=== PATIENT | male | born 1990 | race Caucasian/White ===

== ENCOUNTER 2016-11-15 14:04 | Emergency (ER) | payer OTHER ==
--- NOTE | 2016-11-15 15:11 | ED CLINICAL REPORT ---
Clinical Report - Physicians/Mid Levels [facility] [address] [address] 11/15/2016 14:06 Patient: MABLE BETHEA Time Seen: 14:59; initial patient contact, initial documentation, patient care assumed. Arrived- By private vehicle. Historian- patient. HISTORY OF PRESENT ILLNESS Chief Complaint: SKIN RASH, LESION and BOIL. This started about 1 months ago and is still present and worsening. Not itchy, painful or burning. It has been located on the right lower extremity and left lower extremity. No cause has been identified. (pt admits to picking at the areas). Similar symptoms previously: None. Recent medical care: Not recently seen/assessed. REVIEW OF SYSTEMS No fever. All systems otherwise negative, except as recorded above. PAST HISTORY See nurses notes. PROBLEMS: no known problems. ADDITIONAL SURGERIES: Appendectomy. --14:52 Di Fried, RCharis. SOCIAL HISTORY Light tobacco smoker. No alcohol use or drug use. No recent travel. Is a local resident. FAMILY HISTORY Negative. ADDITIONAL NOTES The nursing notes have been reviewed with agreement regarding the chief complaint, HPI, ROS, PMH and patient medications and allergies. PHYSICAL EXAM Vital Signs: 11/15/2016 14:50 BP: 113/71. HR: 77. RR: 18. O2 saturation: 97%. Temp: 98.4 F. Pain level now: 6/10. Have been reviewed as normal and appear to be correct. Appearance: Alert. Oriented X3. No acute distress. (unkept dirty appearance). Eyes: Pupils equal, round and reactive to light. Conjunctivae and eyelids normal. Neck: Neck supple. Respiratory: No respiratory distress. Skin: Skin warm and dry. Normal skin color. No rash. Normal skin turgor. (#9 scabbed over areas with mild erythema and excoriations to R leg, #4 same type of spots to L leg, no dc, no swelling). Extremities: Normal external inspection. Extremities nontender. Neuro: Oriented X 3. No motor deficit. No sensory deficit. PROGRESS AND PROCEDURES Patient counseled in person regarding the patient's stable condition and diagnosis. Differential Diagnosis: Other possible considerations: abscess, mrsa, cellulitis, folliculitis, insect bites/stings. Above considerations are based on history and physical exam. Differential diagnosis was discussed with patient. Disposition: Discharged home in good and unchanged condition (15:11). Condition: good and stable. CLINICAL IMPRESSION MRSA (Methicillin resistant Staph aureus) located on the right thigh, right knee, right lower leg, right ankle, left thigh, left knee, left lower leg and left ankle; colonization only. No foreign body present. INSTRUCTIONS Protect wound and keep wound area clean. Soak in warm soapy water. Apply bacitracin twice daily. Warnings: GENERAL WARNINGS: Return or contact your physician immediately if your condition worsens or changes unexpectedly, if not improving as expected, or if other problems arise. Specifically return if problem worsens. Prescription Medications: Bactrim DS 800 mg / 160 mg: take 1 tablet orally every 12 hours for 10 days. No refill. Bactroban 2% ointment: apply small amount to affected area three times daily for 5 days. Dispense twenty-two (22) grams. No refills. Substitution is permissible. Follow-up: Follow up with your doctor in about five days as needed and for wound check. Call for an appointment. Summary of care provided to patient. Understanding of the discharge instructions verbalized by patient. (Electronically signed by Anastasia Saha A.R.N.P. 11/15/2016 18:17)
--- NOTE | 2016-11-15 15:12 | ED NURSING NOTES ---
Clinical Report - Nurses [facility] [address] [place] [address] 11/15/2016 14:06 Patient: MABLE BETHEA TRIAGE Triage time 14:51. Acuity: LEVEL 5. Chief Complaint: SKIN RASH and SKIN LESION and . multiple sites on legs. Alert. SEPSIS SCREEN: Sepsis Screen. Negative (no infection suspected/documented). --14:55 Di Fried R.N. 14:50 11/15/16. BP: 113/71. HR: 77. RR: 18. O2 saturation: 97%. Temp: 98.4 F. Pain level now: 01/19. --14:55 Di Fried R.N. Acuity: LEVEL 4. 15:04 11/15/16. --15:04 Jonathan Figueroa R.N. Weight: 74.8 kg stated. Height/Length: 71.5 inches Per Patient. BMI: 22.7. --14:51 Di Fried R.N. Medications None. --14:50 Di Fried R.N. Allergies No Known Drug Allergy. --14:50 Di Fried R.N. History Arrived by private vehicle. Historian: patient. Accompanied by father. Primary physician (none). Reported as located on the right leg and left leg. Onset. (started a month ago, and has spread, pt has drained some of the sores). It is described as burning and painful. 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 PAST MEDICAL HX: Negative. Immunizations: up-to-date. SURGERY HX: Appendectomy. SOCIAL HX: Light tobacco smoker (cigarette)- less than 1/2 a pack per day. No alcohol use or drug use. SELF HARM ASSESSMENT: A self harm assessment was performed. The patient answered "no" to the question "Do you have thoughts of harming or killing yourself?". FUNCTIONAL ASSESSMENT: Functional assessment: no impairments noted. --14:55 Di Fried R.N. PROBLEMS: no known problems. ADDITIONAL SURGERIES: Appendectomy. --14:52 Di Fried R.N. Interventions ID band on patient. To room. --14:55 Di Fried R.N. PHYSICAL ASSESSMENT 14:56 11/15/16. SKIN: Serous drainage. Skin tenderness present. --14:56 Di Fried R.N. NURSING PROGRESS NOTES 14:56 11/15/16. Reassurance given. Patient identifiers checked. Call light placed in reach. Bed placed in lowest position. Patient ready for evaluation- chart flagged. --14:56 Di Fried R.N. DISPOSITION / DISCHARGE Departure time: 1520 PM. Condition at departure: stable. The goals identified in the patient's plan of care were met. No learning barriers present. Discharge instructions provided and reviewed with the patient. Reviewed warnings (s/s of worsening of infection). Reviewed medication(s). Reviewed skin care instructions. Patient verbalized understanding. Written instructions provided in Slovak. No activity restrictions. The patient was discharged by the nurse practitioner. He was discharged home and accompanied by spouse. He left the Emergency Department ambulatory and via private vehicle. Patient driving. FALL RISK ASSESSMENT: Fall risk assessment completed. No fall risk identified. --15:22 Otilia Rhoades R.N. 15:15 11/15/16. BP: 113/75 (regular adult cuff) taken on the left arm, via an automated monitor, while sitting. HR: 78. RR: 16. O2 saturation: 100% on room air. Temp: 97.9 F (oral). Pain level now: 10/19. --15:22 Otilia Rhoades R.N. Locked/Released at 11/15/2016 15:22 by Otilia Rhoades R.N.
--- NOTE | 2016-11-15 15:12 | ED NURSING NOTES ---
Clinical Report - Nurses [facility] [address] [place] [address] 11/15/2016 14:06 Patient: MABLE BETHEA TRIAGE Triage time 14:51. Acuity: LEVEL 5. Chief Complaint: SKIN RASH and SKIN LESION and . multiple sites on legs. Alert. SEPSIS SCREEN: Sepsis Screen. Negative (no infection suspected/documented). --14:55 Di Fried R.N. 14:50 11/15/16. BP: 113/71. HR: 77. RR: 18. O2 saturation: 97%. Temp: 98.4 F. Pain level now: 01/19. --14:55 Di Fried R.N. Acuity: LEVEL 4. 15:04 11/15/16. --15:04 Jonathan Figueroa R.N. Weight: 74.8 kg stated. Height/Length: 71.5 inches Per Patient. BMI: 22.7. --14:51 Di Fried R.N. Medications None. --14:50 Di Fried R.N. Allergies No Known Drug Allergy. --14:50 Di Fried R.N. History Arrived by private vehicle. Historian: patient. Accompanied by father. Primary physician (none). Reported as located on the right leg and left leg. Onset. (started a month ago, and has spread, pt has drained some of the sores). It is described as burning and painful. 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 PAST MEDICAL HX: Negative. Immunizations: up-to-date. SURGERY HX: Appendectomy. SOCIAL HX: Light tobacco smoker (cigarette)- less than 1/2 a pack per day. No alcohol use or drug use. SELF HARM ASSESSMENT: A self harm assessment was performed. The patient answered "no" to the question "Do you have thoughts of harming or killing yourself?". FUNCTIONAL ASSESSMENT: Functional assessment: no impairments noted. --14:55 Di Fried R.N. PROBLEMS: no known problems. ADDITIONAL SURGERIES: Appendectomy. --14:52 Di Fried R.N. Interventions ID band on patient. To room. --14:55 Di Fried R.N. PHYSICAL ASSESSMENT 14:56 11/15/16. SKIN: Serous drainage. Skin tenderness present. --14:56 Di Fried R.N. NURSING PROGRESS NOTES 14:56 11/15/16. Reassurance given. Patient identifiers checked. Call light placed in reach. Bed placed in lowest position. Patient ready for evaluation- chart flagged. --14:56 Di Fried R.N. DISPOSITION / DISCHARGE Departure time: 1520 PM. Condition at departure: stable. The goals identified in the patient's plan of care were met. No learning barriers present. Discharge instructions provided and reviewed with the patient. Reviewed warnings (s/s of worsening of infection). Reviewed medication(s). Reviewed skin care instructions. Patient verbalized understanding. Written instructions provided in Indonesian. No activity restrictions. The patient was discharged by the nurse practitioner. He was discharged home and accompanied by spouse. He left the Emergency Department ambulatory and via private vehicle. Patient driving. FALL RISK ASSESSMENT: Fall risk assessment completed. No fall risk identified. --15:22 Otilia Rhoades R.N. 15:15 11/15/16. BP: 113/75 (regular adult cuff) taken on the left arm, via an automated monitor, while sitting. HR: 78. RR: 16. O2 saturation: 100% on room air. Temp: 97.9 F (oral). Pain level now: 10/19. --15:22 Otilia Rhoades R.N. Locked/Released at 11/15/2016 15:22 by Otilia Rhoades R.N.
--- NOTE | 2016-11-15 18:18 | ED MED RECONCILIATION SUMMARY ---
Patient: MABLE BETHEA Medication Reconciliation Report [facility] VisitID: [id number] [place] [address] 26y, M Registration Date/Time: 11/15/2016 Weight: 74.8 kg Height/Length: 60 in. BMI: 22.7 ALLERGIES: No Known Drug Allergy The patient's Home Medications are listed below: NONE. The source(s) of the original Home Medication information: Not obtained. The following Medications were given to the patient in the Emergency Department: None. The following Medications were prescribed to the patient: Bactrim DS 800 mg / 160 mg: take 1 tablet orally every 12 hours for 10 days. No refill. -- Anastasia Saha A.R.N.P. Bactroban 2% ointment: apply small amount to affected area three times daily for 5 days. Dispense twenty-two (22) grams. No refills. Substitution is permissible. -- Anastasia Saha A.R.N.P.
--- NOTE | 2016-11-15 18:18 | ED MED RECONCILIATION SUMMARY ---
Patient: MABLE BETHEA Medication Reconciliation Report [facility] VisitID: [id number] [place] [address] 26y, M Registration Date/Time: 11/15/2016 Weight: 74.8 kg Height/Length: 60 in. BMI: 22.7 ALLERGIES: No Known Drug Allergy The patient's Home Medications are listed below: NONE. The source(s) of the original Home Medication information: Not obtained. The following Medications were given to the patient in the Emergency Department: None. The following Medications were prescribed to the patient: Bactrim DS 800 mg / 160 mg: take 1 tablet orally every 12 hours for 10 days. No refill. -- Anastasia Saha A.R.N.P. Bactroban 2% ointment: apply small amount to affected area three times daily for 5 days. Dispense twenty-two (22) grams. No refills. Substitution is permissible. -- Anastasia Saha A.R.N.P.
--- NOTE | 2016-11-15 18:18 | ED DISCHARGE INSTRUCTIONS ---
Patient: MABLE BETHEA General Instructions [facility] VisitID: [id number] [place] [address] 26y, M Registration Date/Time: 11/15/2016 MRSA (Methicillin resistant Staph aureus) located on the right thigh, right knee, right lower leg, right ankle, left thigh, left knee, left lower leg and left ankle; colonization only. No foreign body present. INSTRUCTIONS Protect wound and keep wound area clean. Soak in warm soapy water. Apply bacitracin twice daily. Warnings: GENERAL WARNINGS: Return or contact your physician immediately if your condition worsens or changes unexpectedly, if not improving as expected, or if other problems arise. Specifically return if problem worsens. Prescription Medications: Bactrim DS 800 mg / 160 mg: take 1 tablet orally every 12 hours for 10 days. No refill. Bactroban 2% ointment: apply small amount to affected area three times daily for 5 days. Dispense twenty-two (22) grams. No refills. Substitution is permissible. Follow-up: Follow up with your doctor in about five days as needed and for wound check. Call for an appointment. Summary of care provided to patient. Understanding of the discharge instructions verbalized by patient. ADDITIONAL INFORMATION Sulfamethoxazole, Trimethoprim Oral tablet What is this medicine? SULFAMETHOXAZOLE; TRIMETHOPRIM or SMX-TMP (suhl fuh meth OK cornelius zohl; trye METH oh prim) is a combination of a sulfonamide antibiotic and a second antibiotic, trimethoprim. It is used to treat or prevent certain kinds of bacterial infections. It will not work for colds, flu, or other viral infections. How should I use this medicine? Take this medicine by mouth with a full glass of water. Follow the directions on the prescription label. Take your medicine at regular intervals. Do not take it more often than directed. Do not skip doses or stop your medicine early. Talk to your bombsight specialist regarding the use of this medicine in children. Special care may be needed. This medicine has been used in children as young as 2 months of age. What side effects may I notice from receiving this medicine? Side effects that you should report to your doctor or health patient care secretary as soon as possible: allergic reactions like skin rash or hives, swelling of the face, lips, or tongue breathing problems fever or chills, sore throat irregular heartbeat, chest pain joint or muscle pain pain or difficulty passing urine red pinpoint spots on skin redness, blistering, peeling or loosening of the skin, including inside the mouth unusual bleeding or bruising unusually weak or tired yellowing of the eyes or skin Side effects that usually do not require medical attention (report to your doctor or health patient care secretary if they continue or are bothersome): diarrhea dizziness headache loss of appetite nausea, vomiting nervousness What may interact with this medicine? Do not take this medicine with any of the following medications: aminobenzoate potassium dofetilide metronidazole This medicine may also interact with the following medications: AI inhibitors like benazepril, enalapril, lisinopril, and ramipril cyclosporine digoxin diuretics indomethacin medicines for diabetes methenamine methotrexate phenytoin potassium supplements pyrimethamine sulfinpyrazone tricyclic antidepressants warfarin What if I miss a dose? If you miss a dose, take it as soon as you can. If it is almost time for your next dose, take only that dose. Do not take double or extra doses. Where should I keep my medicine? Keep out of the reach of children. Store at room temperature between 20 to 25 degrees C (68 to 77 degrees F). Protect from light. Throw away any unused medicine after the expiration date. What should I tell my health care provider before I take this medicine? They need to know if you have any of these conditions: anemia asthma being treated with anticonvulsants if you frequently drink alcohol containing drinks kidney disease liver disease low level of folic acid or hzbnutv-[id number]-cbwnlbpmf dehydrogenase poor nutrition or malabsorption porphyria severe allergies thyroid disorder an unusual or allergic reaction to sulfamethoxazole, trimethoprim, sulfa drugs, other medicines, foods, dyes, or preservatives or trying to get breast-feeding What should I watch for while using this medicine? Tell your doctor or health patient care secretary if your symptoms do not improve. Drink several glasses of water a day to reduce the risk of kidney problems. Do not treat diarrhea with over the counter products. Contact your doctor if you have diarrhea that lasts more than 2 days or if it is severe and watery. This medicine can make you more sensitive to the sun. Keep out of the sun. If you cannot avoid being in the sun, wear protective clothing and use a sunscreen. Do not use sun lamps or tanning beds/booths. Mupirocin Topical ointment What is this medicine? MUPIROCIN (myoo PEER oh sin) is an antibiotic. It is used on the skin to treat skin infections. How should I use this medicine? This medicine is for external use only. Follow the directions on the prescription label. Wash your hands before and after use. Before applying, wash the affected area with mild soap and water and pat dry. Apply a small amount to the affected area and rub gently. You can cover the area with a gauze dressing. Do not get this medicine in your eyes. If you do, rinse out with plenty of cool tap water. Do not use your medicine more often than directed. Finish the full course of medicine prescribed by your doctor or health patient care secretary even if you think your condition is better. Do not use over large areas of burnt skin. Talk to your bombsight specialist regarding the use of this medicine in children. Special care may be needed. What side effects may I notice from receiving this medicine? Side effects that you should report to your doctor or health patient care secretary as soon as possible: skin rash, redness, continued swelling, burning, itching, stinging, or pain Side effects that usually do not require medical attention (report to your doctor or health patient care secretary if they continue or are bothersome): dry skin, itching What may interact with this medicine? Interactions are not expected. Do not use any other skin products on the affected area without telling your doctor or health patient care secretary. What if I miss a dose? If you miss a dose, take it as soon as you can. If it is almost time for your next dose, take only that dose. Do not take double or extra doses. Where should I keep my medicine? Keep out of the reach of children. Store at room temperature between 20 and 25 degrees C (68 and 77 degrees F). Throw away any unused medicine after the expiration date. What should I tell my health care provider before I take this medicine? They need to know if you have any of these conditions: an unusual or allergic reaction to mupirocin, polyethylene glycol (PEG), or other topical antibiotic medicine or trying to get breast-feeding What should I watch for while using this medicine? Tell your doctor or health patient care secretary if your skin condition does not begin to improve within 3 to 5 days. You have been given the following additional information: Sulfamethoxazole, Trimethoprim Oral tablet Mupirocin Topical ointment (Electronically signed by Anastasia Saha A.R.N.P. 11/15/2016 18:17)
--- NOTE | 2016-11-15 18:18 | ED MAR SUMMARY ---
..... Medication Administration Record [facility] [address] [place], [place] [id number] Patient: MABLE BETHEA Visit ID: [id number] 26y, M Weight: 74.8 kg Height/Length: 71.5 in BMI: 22.7 ALLERGIES: No Known Drug Allergy
--- NOTE | 2016-11-15 18:18 | ED MAR SUMMARY ---
..... Medication Administration Record [facility] [address] [place], [place] [id number] Patient: MABLE BETHEA Visit ID: [id number] 26y, M Weight: 74.8 kg Height/Length: 71.5 in BMI: 22.7 ALLERGIES: No Known Drug Allergy
--- NOTE | 2016-11-15 18:18 | ED DISCHARGE INSTRUCTIONS ---
Patient: MABLE BETHEA General Instructions [facility] VisitID: [id number] [place] [address] 26y, M Registration Date/Time: 11/15/2016 MRSA (Methicillin resistant Staph aureus) located on the right thigh, right knee, right lower leg, right ankle, left thigh, left knee, left lower leg and left ankle; colonization only. No foreign body present. INSTRUCTIONS Protect wound and keep wound area clean. Soak in warm soapy water. Apply bacitracin twice daily. Warnings: GENERAL WARNINGS: Return or contact your physician immediately if your condition worsens or changes unexpectedly, if not improving as expected, or if other problems arise. Specifically return if problem worsens. Prescription Medications: Bactrim DS 800 mg / 160 mg: take 1 tablet orally every 12 hours for 10 days. No refill. Bactroban 2% ointment: apply small amount to affected area three times daily for 5 days. Dispense twenty-two (22) grams. No refills. Substitution is permissible. Follow-up: Follow up with your doctor in about five days as needed and for wound check. Call for an appointment. Summary of care provided to patient. Understanding of the discharge instructions verbalized by patient. ADDITIONAL INFORMATION Sulfamethoxazole, Trimethoprim Oral tablet What is this medicine? SULFAMETHOXAZOLE; TRIMETHOPRIM or SMX-TMP (suhl fuh meth OK cornelius zohl; trye METH oh prim) is a combination of a sulfonamide antibiotic and a second antibiotic, trimethoprim. It is used to treat or prevent certain kinds of bacterial infections. It will not work for colds, flu, or other viral infections. How should I use this medicine? Take this medicine by mouth with a full glass of water. Follow the directions on the prescription label. Take your medicine at regular intervals. Do not take it more often than directed. Do not skip doses or stop your medicine early. Talk to your form setter supervisor regarding the use of this medicine in children. Special care may be needed. This medicine has been used in children as young as 2 months of age. What side effects may I notice from receiving this medicine? Side effects that you should report to your doctor or health nursing care partner as soon as possible: allergic reactions like skin rash or hives, swelling of the face, lips, or tongue breathing problems fever or chills, sore throat irregular heartbeat, chest pain joint or muscle pain pain or difficulty passing urine red pinpoint spots on skin redness, blistering, peeling or loosening of the skin, including inside the mouth unusual bleeding or bruising unusually weak or tired yellowing of the eyes or skin Side effects that usually do not require medical attention (report to your doctor or health nursing care partner if they continue or are bothersome): diarrhea dizziness headache loss of appetite nausea, vomiting nervousness What may interact with this medicine? Do not take this medicine with any of the following medications: aminobenzoate potassium dofetilide metronidazole This medicine may also interact with the following medications: AI inhibitors like benazepril, enalapril, lisinopril, and ramipril cyclosporine digoxin diuretics indomethacin medicines for diabetes methenamine methotrexate phenytoin potassium supplements pyrimethamine sulfinpyrazone tricyclic antidepressants warfarin What if I miss a dose? If you miss a dose, take it as soon as you can. If it is almost time for your next dose, take only that dose. Do not take double or extra doses. Where should I keep my medicine? Keep out of the reach of children. Store at room temperature between 20 to 25 degrees C (68 to 77 degrees F). Protect from light. Throw away any unused medicine after the expiration date. What should I tell my health care provider before I take this medicine? They need to know if you have any of these conditions: anemia asthma being treated with anticonvulsants if you frequently drink alcohol containing drinks kidney disease liver disease low level of folic acid or amofcbt-1-[id number] dehydrogenase poor nutrition or malabsorption porphyria severe allergies thyroid disorder an unusual or allergic reaction to sulfamethoxazole, trimethoprim, sulfa drugs, other medicines, foods, dyes, or preservatives or trying to get breast-feeding What should I watch for while using this medicine? Tell your doctor or health nursing care partner if your symptoms do not improve. Drink several glasses of water a day to reduce the risk of kidney problems. Do not treat diarrhea with over the counter products. Contact your doctor if you have diarrhea that lasts more than 2 days or if it is severe and watery. This medicine can make you more sensitive to the sun. Keep out of the sun. If you cannot avoid being in the sun, wear protective clothing and use a sunscreen. Do not use sun lamps or tanning beds/booths. Mupirocin Topical ointment What is this medicine? MUPIROCIN (myoo PEER oh sin) is an antibiotic. It is used on the skin to treat skin infections. How should I use this medicine? This medicine is for external use only. Follow the directions on the prescription label. Wash your hands before and after use. Before applying, wash the affected area with mild soap and water and pat dry. Apply a small amount to the affected area and rub gently. You can cover the area with a gauze dressing. Do not get this medicine in your eyes. If you do, rinse out with plenty of cool tap water. Do not use your medicine more often than directed. Finish the full course of medicine prescribed by your doctor or health nursing care partner even if you think your condition is better. Do not use over large areas of burnt skin. Talk to your form setter supervisor regarding the use of this medicine in children. Special care may be needed. What side effects may I notice from receiving this medicine? Side effects that you should report to your doctor or health nursing care partner as soon as possible: skin rash, redness, continued swelling, burning, itching, stinging, or pain Side effects that usually do not require medical attention (report to your doctor or health nursing care partner if they continue or are bothersome): dry skin, itching What may interact with this medicine? Interactions are not expected. Do not use any other skin products on the affected area without telling your doctor or health nursing care partner. What if I miss a dose? If you miss a dose, take it as soon as you can. If it is almost time for your next dose, take only that dose. Do not take double or extra doses. Where should I keep my medicine? Keep out of the reach of children. Store at room temperature between 20 and 25 degrees C (68 and 77 degrees F). Throw away any unused medicine after the expiration date. What should I tell my health care provider before I take this medicine? They need to know if you have any of these conditions: an unusual or allergic reaction to mupirocin, polyethylene glycol (PEG), or other topical antibiotic medicine or trying to get breast-feeding What should I watch for while using this medicine? Tell your doctor or health nursing care partner if your skin condition does not begin to improve within 3 to 5 days. You have been given the following additional information: Sulfamethoxazole, Trimethoprim Oral tablet Mupirocin Topical ointment (Electronically signed by Anastasia Saha A.R.N.P. 11/15/2016 18:17)
== END 2016-11-15 15:13 | disposition home or self-care (01) ==
LOC: ED SRH 14:04
DX: R21 Rash and other nonspecific skin eruption (principal); Z22.322 Carrier or suspected carrier of Methicillin resistant Staphylococcus aureus; F17.210 Nicotine dependence, cigarettes, uncomplicated

== ENCOUNTER 2016-11-18 12:09 | Emergency (ER) | payer OTHER ==
--- NOTE | 2016-11-18 13:27 | ED CLINICAL REPORT ---
Clinical Report - Physicians/Mid Levels [facility] [address] [place] [address] 11/18/2016 12:08 Patient: MABLE BETHEA Time Seen: 12:53 Nov 18 2016. Arrived- By private vehicle. Historian- patient and father. HISTORY OF PRESENT ILLNESS Chief Complaint: Injury to the left thumb. Occurred at home. The patient sustained a laceration. Patient is experiencing mild pain. ( patient sustain a laceration from a knife just prior to arrival. He reports attempting touse a knife with food purposes. Denies any attempt to hurt himself. Patient is right-hand dominant. Denies familia injury to the left thumb. Has been applying direct pressure since incident occurred. NO diff with movement). REVIEW OF SYSTEMS The patient sustained a laceration. No swelling, tingling or numbness. All systems otherwise negative, except as recorded above. PAST HISTORY The patient's dominant hand is the right. He has not had a prior injury to the same area. Problems: MRSA Infection. Fall. Contusion. Additional Surgeries: Appendectomy. Medications: Bactrim DS Oral. Bactroban External. Allergies: No Known Drug Allergy. SOCIAL HISTORY Light tobacco smoker. No alcohol use or drug use. ADDITIONAL NOTES The nursing notes have been reviewed. PHYSICAL EXAM Vital Signs: 11/18/2016 12:35 BP: 108/71. HR: 97. RR: 18. O2 saturation: 98%. Temp: 98.2 F. Pain level now: 6/10. Appearance: Alert. Head: Head atraumatic. Neck: Normal inspection. CVS: Normal heart rate and rhythm. Heart sounds normal. Respiratory: No respiratory distress. Breath sounds normal. Skin: Skin warm. Extremities: Dorsal left hand: (proximal mcp with 1.5 cm lac, full thickness, mild bleeding, full extension/ flexion/ sensation distal to such). Tip of left thumb. No tenderness or swelling. Soft tissue tenderness present. No bony tenderness. Neuro, Vascular and Tendons: Vascular status intact. Sensation intact. Motor intact. Tendon function intact. PROGRESS AND PROCEDURES Laceration Repair: Time: 13:21 Nov 18 2016. Location: (left thumb). Time-out completed immediately before the procedure. Length: 1.5cm. Complexity: simple (local anesthesia used and sutured). Wound depth/shape- linear and involving fascia. Wound is clean. Distal neuro/vascular/tendon status normal. Tendon examined. No sensory deficit or motor deficit distally. Anesthesia provided using 1% lidocaine with epi. Wound explored and cleansed. Subcutaneous closure: interrupted 5-0 (6 sutures, non absorb). Post-procedure: he is stable and there are no complications. Bleeding is controlled and neuro-vascular status is intact distal to the wound. Dressing applied. Tetanus immunization up-to-date. Course of Care: No signs of foreign object. No signs of infectious process. No signs of injury to the tendon, ligament. Full range of motion, largely nontender minus some soft tissue tenderness , do not suspect bone fracture. Full rom. Patient is stable. Symptoms better. Patient/family counseled. Disposition: Discharged. CLINICAL IMPRESSION Single deep laceration to the left thumb. INSTRUCTIONS Elevate affected areas above chest level. Protect wound and keep wound area clean. Apply bacitracin twice daily. Sutures should be removed in seven days. OTC Medications: Take OTC medications according to label instructions. Available over the counter. Acetaminophen (available over the counter): take according to label instructions. Motrin (available over the counter): take according to label instructions. Follow-up: Follow up with your doctor in seven days for suture removal. (Electronically signed by Scarlett Wan P.A.-C 11/18/2016 13:23)
--- NOTE | 2016-11-18 13:27 | ED NURSING NOTES ---
Clinical Report - Nurses [facility] [address] [place] [address] 11/18/2016 12:08 Patient: MABLE BETHEA TRIAGE Triage time 12:35. Acuity: LEVEL 3. Chief Complaint: INJURY TO LEFT HAND. INJURY TO THE LEFT THUMB (cut with knife). Alert. No acute distress. --12:40 Sabine Perez R.N. 12:35 11/18/16. BP: 108/71. HR: 97. RR: 18. O2 saturation: 98% on room air. Temp: 98.2 F. Pain level now: 01/19. --12:40 Sabine Perez R.N. 12:35 11/18/16. BP: 108/71. HR: 97. RR: 18. O2 saturation: 98% on room air. Temp: 98.2 F. Pain level now: 01/19. --12:40 Sabine Perez R.N. Weight: 29.4 kg stated. Height/Length: 71 inches Per Patient. BMI: 9. --12:38 Sabine Perez R.N. Medications Bactrim DS Oral. Bactroban External. --12:37 Sabine Perez R.N. Medication/allergy information source: the patient. --12:40 Sabine Perez R.N. Allergies No Known Drug Allergy. --12:37 Sabine Perez R.N. History Arrived by private vehicle. Historian: patient. Accompanied by family. No primary care physician. This occurred just prior to arrival. He sustained a laceration from a knife. 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 PAST MEDICAL HX: Tetanus status: up-to-date. SOCIAL HX: Light tobacco smoker (cigarette)- less than 1/2 a pack per day. No alcohol use or drug use. FALL RISK ASSESSMENT: Fall risk assessment completed. No fall risk identified. NUTRITIONAL RISK ASSESSMENT: The nutritional risk assessment revealed no deficiencies. FUNCTIONAL ASSESSMENT: Functional assessment: no impairments noted. LEARNING NEEDS ASSESSMENT: The learning needs assessment revealed no barriers. SKIN INTEGRITY ASSESSMENT: Skin integrity risk assessment completed. No skin integrity risk identified. --12:40 Sabine Perez R.N. PROBLEMS: MRSA Infection. Fall. Contusion. --12:39 Sabine Perez R.N. ADDITIONAL SURGERIES: Appendectomy. --12:39 Sabine Perez R.N. Interventions ID band on patient. To room. --12:40 Sabine Perez R.N. PHYSICAL ASSESSMENT Ambulatory to room. GENERAL / NEURO / PSYCH: Oriented X 4. Appears in pain and anxious. EXTREMITIES: Left hand: subcutaneous 2.5 cm laceration with controlled bleeding. SKIN: Skin is warm and dry. Single laceration to left thumb; 2.5 cm. --12:41 Sabine Perez R.N. NURSING PROGRESS NOTES Extremity elevated (pressure applied to the wound.). Two patient identifiers checked. Call light placed in reach. Side rails up x 1. Bed placed in lowest position. Brakes of bed on. Patient ready for evaluation. --12:41 Sabine Perez R.N. Applied clean dressing consisting of Band-Aid, following the application of antibiotic ointment. --13:30 Sabine Perez R.N. DISPOSITION / DISCHARGE Condition at departure: improved. No learning barriers present. Discharge instructions provided and reviewed with the patient and parent. Reviewed medication(s) side effects, precautions, dosing and course information. Prescription(s) given to the patient. Patient verbalized understanding. Written instructions provided in Maltese. The patient was discharged home and accompanied by parent. He left the Emergency Department ambulatory and via private vehicle. Parent driving. Medication list reviewed and validated. --13:31 Sabine Perez R.N. 12:35 11/18/16. BP: 108/71. HR: 97. RR: 18. O2 saturation: 98% on room air. Temp: 98.2 F. Pain level now: 01/19. --13:31 Sabine Perez R.N. Departure time: 1325. --13:31 Sabine Perez R.N. Locked/Released at 11/18/2016 13:32 by Sabine Perez R.N.
--- NOTE | 2016-11-18 13:27 | ED NURSING NOTES ---
Clinical Report - Nurses [facility] [address] [place] [address] 11/18/2016 12:08 Patient: MABLE BETHEA TRIAGE Triage time 12:35. Acuity: LEVEL 3. Chief Complaint: INJURY TO LEFT HAND. INJURY TO THE LEFT THUMB (cut with knife). Alert. No acute distress. --12:40 Sabine Perez R.N. 12:35 11/18/16. BP: 108/71. HR: 97. RR: 18. O2 saturation: 98% on room air. Temp: 98.2 F. Pain level now: 01/19. --12:40 Sabine Perez R.N. 12:35 11/18/16. BP: 108/71. HR: 97. RR: 18. O2 saturation: 98% on room air. Temp: 98.2 F. Pain level now: 01/19. --12:40 Sabine Perez R.N. Weight: 29.4 kg stated. Height/Length: 71 inches Per Patient. BMI: 9. --12:38 Sabine Perez R.N. Medications Bactrim DS Oral. Bactroban External. --12:37 Sabine Perez R.N. Medication/allergy information source: the patient. --12:40 Sabine Perez R.N. Allergies No Known Drug Allergy. --12:37 Sabine Perez R.N. History Arrived by private vehicle. Historian: patient. Accompanied by family. No primary care physician. This occurred just prior to arrival. He sustained a laceration from a knife. 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 PAST MEDICAL HX: Tetanus status: up-to-date. SOCIAL HX: Light tobacco smoker (cigarette)- less than 1/2 a pack per day. No alcohol use or drug use. FALL RISK ASSESSMENT: Fall risk assessment completed. No fall risk identified. NUTRITIONAL RISK ASSESSMENT: The nutritional risk assessment revealed no deficiencies. FUNCTIONAL ASSESSMENT: Functional assessment: no impairments noted. LEARNING NEEDS ASSESSMENT: The learning needs assessment revealed no barriers. SKIN INTEGRITY ASSESSMENT: Skin integrity risk assessment completed. No skin integrity risk identified. --12:40 Sabine Perez R.N. PROBLEMS: MRSA Infection. Fall. Contusion. --12:39 Sabine Perez R.N. ADDITIONAL SURGERIES: Appendectomy. --12:39 Sabine Perez R.N. Interventions ID band on patient. To room. --12:40 Sabine Perez R.N. PHYSICAL ASSESSMENT Ambulatory to room. GENERAL / NEURO / PSYCH: Oriented X 4. Appears in pain and anxious. EXTREMITIES: Left hand: subcutaneous 2.5 cm laceration with controlled bleeding. SKIN: Skin is warm and dry. Single laceration to left thumb; 2.5 cm. --12:41 Sabine Perez R.N. NURSING PROGRESS NOTES Extremity elevated (pressure applied to the wound.). Two patient identifiers checked. Call light placed in reach. Side rails up x 1. Bed placed in lowest position. Brakes of bed on. Patient ready for evaluation. --12:41 Sabine Perez R.N. Applied clean dressing consisting of Band-Aid, following the application of antibiotic ointment. --13:30 Sabine Perez R.N. DISPOSITION / DISCHARGE Condition at departure: improved. No learning barriers present. Discharge instructions provided and reviewed with the patient and parent. Reviewed medication(s) side effects, precautions, dosing and course information. Prescription(s) given to the patient. Patient verbalized understanding. Written instructions provided in Upper Sorbian. The patient was discharged home and accompanied by parent. He left the Emergency Department ambulatory and via private vehicle. Parent driving. Medication list reviewed and validated. --13:31 Sabine Perez R.N. 12:35 11/18/16. BP: 108/71. HR: 97. RR: 18. O2 saturation: 98% on room air. Temp: 98.2 F. Pain level now: 01/19. --13:31 Sabine Perez R.N. Departure time: 1325. --13:31 Sabine Perez R.N. Locked/Released at 11/18/2016 13:32 by Sabine Perez R.N.
--- NOTE | 2016-11-18 13:32 | ED MAR SUMMARY ---
..... Medication Administration Record [facility] [address] [place], [place] [id number] Patient: MABLE BETHEA Visit ID: [id number] 26y, M Weight: 29.4 kg Height/Length: 71 in BMI: 9 ALLERGIES: No Known Drug Allergy
--- NOTE | 2016-11-18 13:32 | ED MED RECONCILIATION SUMMARY ---
Patient: MABLE BETHEA Medication Reconciliation Report [facility] VisitID: [id number] [address] [place] [address] 26y, M Registration Date/Time: 11/18/2016 Weight: 29.4 kg Height/Length: 71 in. BMI: 9.0 ALLERGIES: No Known Drug Allergy The patient's Home Medications are listed below: THE FOLLOWING MEDICATIONS NEED TO BE RECONCILED: Bactrim DS Oral Bactroban External The source(s) of the original Home Medication information: patient The following Medications were given to the patient in the Emergency Department: None. The following Medications were prescribed to the patient: Take OTC medications according to label instructions. Available over the counter. -- Scarlett Wan, P.A.-C Acetaminophen (available over the counter): take according to label instructions. -- Scarlett Wan, P.A.-C Motrin (available over the counter): take according to label instructions. -- Scarlett Wan, P.A.-C
--- NOTE | 2016-11-18 13:32 | ED MED RECONCILIATION SUMMARY ---
Patient: MABLE BETHEA Medication Reconciliation Report [facility] VisitID: [id number] [address] [place] [address] 26y, M Registration Date/Time: 11/18/2016 Weight: 29.4 kg Height/Length: 71 in. BMI: 9.0 ALLERGIES: No Known Drug Allergy The patient's Home Medications are listed below: THE FOLLOWING MEDICATIONS NEED TO BE RECONCILED: Bactrim DS Oral Bactroban External The source(s) of the original Home Medication information: patient The following Medications were given to the patient in the Emergency Department: None. The following Medications were prescribed to the patient: Take OTC medications according to label instructions. Available over the counter. -- Scarlett Wan, P.A.-C Acetaminophen (available over the counter): take according to label instructions. -- Scarlett Wan, P.A.-C Motrin (available over the counter): take according to label instructions. -- Scarlett Wan, P.A.-C
--- NOTE | 2016-11-18 13:32 | ED DISCHARGE INSTRUCTIONS ---
Patient: MABLE BETHEA General Instructions [facility] VisitID: [id number] [place] [address] 26y, M Registration Date/Time: 11/18/2016 Single deep laceration to the left thumb. INSTRUCTIONS Elevate affected areas above chest level. Protect wound and keep wound area clean. Apply bacitracin twice daily. Sutures should be removed in seven days. OTC Medications: Take OTC medications according to label instructions. Available over the counter. Acetaminophen (available over the counter): take according to label instructions. Motrin (available over the counter): take according to label instructions. Follow-up: Follow up with your doctor in seven days for suture removal. ADDITIONAL INFORMATION Laceration (All Closures) Alaceration is a cut through the skin. This will usually require stitches (sutures) or ana if it is deep. Minor cuts may be treated with a surgical tape closure orskin glue. Home care The following guidelines will help you care for your laceration at home: Extremity, face, or trunk wounds Keep the wound clean and dry. If a bandage was applied and it becomes wet or dirty, replace it. Otherwise, leave it in place for the first 24 hours. If stitches or ana were used, clean the wound daily. After removing the bandage, wash the area with soap and water. Use a wet cotton swab to loosen and remove any blood or crust that forms. The doctor may prescribe an antibiotic cream or ointment to prevent infection. Do not stop taking this medication until you have finished the prescribed course or the doctor tells you to stop. The doctor may also prescribe medications for pain. Follow the doctors instructions for taking these medications. You may remove the bandage to shower as usual after the first 24 hours, but do not soak the area in water (no swimming) until the stitches or ana are removed. If surgical tape was used, keep the area clean and dry. If it becomes wet, blot it dry with a towel. If skin glue was used, do not scratch, rub, or pick at the adhesive film. Do not place tape directly over the film. Do not apply liquid, ointment, or creams to the wound while the film is in place. Do not clean the wound with peroxide and do not apply ointments. Avoid activities that cause heavy sweating until the film has fallen off. Protect the wound from prolonged exposure to sunlight or tanning lamps. You may shower as usual but do not soak the wound in water (no baths or swimming). The film will fall off by itself in 510 days. Scalp wounds During the first two days, you may carefully rinse your hair in the shower to remove blood, glass or dirt particles. After two days, you may shower and shampoo your hair normally. Do not soak your scalp in the tub or go swimming until the stitches or ana have been removed. Talk with your doctor before applying any antibiotic ointment to the wound. Mouth wounds Eat soft foods to reduce pain. If the cut is inside of your mouth, clean by rinsing after each meal and at bedtime with a mixture of equal parts water and hydrogen peroxide (do not swallow!). Or, you can use a cotton swab to directly apply hydrogen peroxide onto the cut. Mouth wounds can be painful when eating. You may use an [id number] local numbing solution for pain relief. If this is not available, you may use any numbing solution for teething babies. You may apply this directly to the sores with a cotton-tip swab or with your finger. Follow-up care Follow up with your health care provider. Most skin wounds heal within ten days. Mouth and facial wounds heal within five days. However, even with proper treatment, a wound infection may sometimes occur. Therefore, you should check the wound daily for signs of infection listed below. Stitches should be removed from the face within five days; stitches and ana should be removed from other parts of the body within 714 days. If dissolving stitches were used in the mouth, these will fall out or dissolve without the need for removal. If tape closures were used, remove them yourself if they have not fallen off after 7 days. Ifskin glue was used, the film will fall off by itself in 510 days. When to seek medical care Get prompt medical attention if any of these occur: Bleeding not controlled by direct pressure Signs of infection, including increasing pain in the wound, increasing wound redness or swelling, or pus coming from the wound Fever of 100.4F (38C) or higher, or as directed by your health care provider Stitches or ana come apart or fall out or surgical tape falls off before 7 days Wound edges re-open Laceration, Extremity (Sutures, Ana, Or Tape) A laceration is a cut through the skin. This will usually require stitches (sutures) or ana if it is deep. Minor cuts may be treated with surgical tape closures. Home care The following guidelines will help you care for your laceration at home: Keep the wound clean and dry. If a bandage was applied and it becomes wet or dirty, replace it. Otherwise, leave it in place for the first 24 hours, then change it once a day or as directed. If stitches or ana were used, clean the wound daily: After removing the bandage, wash the area with soap and water. Use a wet cotton swab to loosen and remove any blood or crust that forms. After cleaning, keep the wound clean and dry. Talk with your doctor before applying any antibiotic ointment to the wound. Reapply the bandage. You may remove the bandage to shower as usual after the first 24 hours, but do not soak the area in water (no swimming) until the stitches or ana are removed. If surgical tape closures were used, keep the area clean and dry. If it becomes wet, blot it dry with a towel. The doctor may prescribe an antibiotic cream or ointment to prevent infection. Do not stop taking this medication until you have finished the prescribed course or the doctor tells you to stop. The doctor may also prescribe medications for pain. Follow the doctors instructions for taking these medications. If you have chronic liver or kidney disease or ever had a stomach ulcer or GI bleeding, talk with your doctor before using these medicines. Follow-up care Follow up with your health care provider. Most skin wounds heal within ten days. However, an infection may sometimes occur despite proper treatment. Therefore, check the wound daily for the signs of infection listed below. Stitches and ana should be removed within 714 days. If surgical tape closures were used, you may remove them after 10 days, if they have not fallen off by then. Notify your doctor if you notice persistent numbness or weakness in the injured extremity. (Note:A radiologist will review any X-rays that were taken. We will notify you of any new findings that may affect your care.) When to seek medical care Get prompt medical attention if any of these occur: Increasing pain in the wound Redness, swelling, or pus coming from the wound Fever of 100.4F (38C) or higher, or as directed by your health care provider If stitches or ana come apart or fall out before your next appointment If the surgical tape closures fall off within seven days, or the wound edges re-open Bleeding not controlled by direct pressure You have been given the following additional information: Laceration, All Laceration, Extrem (Suture, Staple, Or Tape) (Electronically signed by Scarlett Wan P.A.-C 11/18/2016 13:23)
--- NOTE | 2016-11-18 13:32 | ED MAR SUMMARY ---
..... Medication Administration Record [facility] [address] [place], [place] [id number] Patient: MABLE BETHEA Visit ID: [id number] 26y, M Weight: 29.4 kg Height/Length: 71 in BMI: 9 ALLERGIES: No Known Drug Allergy
== END 2016-11-18 13:25 | disposition home or self-care (01) ==
LOC: ED SRH 12:09
DX: S61.012A Laceration without foreign body of left thumb without damage to nail, initial encounter (principal); W26.0XXA Contact with knife, initial encounter; Y93.G1 Activity, food preparation and clean up; Y92.009 Unspecified place in unspecified non-institutional (private) residence as the place of occurrence of the external cause; Z72.0 Tobacco use